=== PATIENT | female | born 1990 | race Caucasian/White ===

== ENCOUNTER → 2017-02-02 | Outpatient (CLI) | payer BC ==
[~2017-02-02] MED LIST: BIRTH CONTROL PO; DOCU-143 PO; HYDR-3812 PO; NAPR-243 PO; TRAM50TA2 PO
--- NOTE | 2017-02-02 16:19 | Diagnostic Imaging Report ---
EXAMINATION: OB ultrasound. INDICATION: survey. FINDINGS: There is a single intrauterine . heart rate is 149 beats per minute. The placenta is posterior. There is no placenta previa. survey demonstrates no ventriculomegaly and unremarkable appearance of the posterior fossa. The stomach appears unremarkable. The four-chamber view, the kidneys, cord insertion, three-vessel cord, urinary bladder, and the upper to mid spine appear unremarkable. The lower spine is not well demonstrated. This is due to position. The cervix is 4 cm in length and is closed. This is evaluated with dedicated transvaginal view. The growth parameters are: Biparietal diameter: 20 weeks 4 days Head circumference: 20 weeks 0 day Abdominal circumference: 20 weeks 1 day Femur length: 20 weeks 4 days These average at: 20 weeks 3 days. This is normal for gestational age of 20 weeks and 1 day based on LOWELL of 06/21/[address] Che. IMPRESSION: Short-term followup to reevaluate the lower spine and attempt to better visualize the four-chamber view of the heart is recommended. Dictated by: Dictated on workstation # [id number]
== END ==
LOC: RAD 12:50
PROVIDERS: ATTEND Obstetrics & Gynecology
DX: Z36 Encounter for antenatal screening of mother (principal); Z3A.20 20 weeks gestation of pregnancy
CPT/HCPCS: 76805; 76817

== ENCOUNTER → 2017-02-11 | Outpatient (CLI) | payer BC ==
--- NOTE | 2017-02-15 07:55 | ECHOCARDIOGRAPHY REPORT ---
DATE OF SERVICE: 02/11/2017 ECHOCARDIOGRAM ORDERING PHYSICIAN: BOBO GRAY MD, ARIADNE, CHER, FACC PRIMARY PHYSICIAN: TERENCE FOSTER MD INDICATION: Palpitations. MEASUREMENTS: LV diameter, diastolic 5.3 IVS thickness, diastolic 0.9 LVPW thickness, diastolic 0.7 Aortic root 3.3 Left atrium 3.4 DESCRIPTION: Two-dimensional echocardiography shows normal global left ventricular systolic function with normal regional wall motion. Left ventricular ejection fraction is 60% to 65%. No distinct regional wall motion abnormalities are seen. Aortic, mitral and tricuspid valve leaflets show good leaflet excursion. The aortic valve is trileaflet. No significant pericardial effusion is seen. Doppler imaging shows trivial mitral and tricuspid regurgitation. There is no Doppler evidence of any significant valvular stenosis. Pulmonary artery systolic pressure is estimated at approximately 25 to 30 mmHg. CONCLUSIONS: 1. Normal global left ventricular systolic function with normal regional wall motion and left ventricular ejection fraction of approximately 60% to 65%. 2. Trivial mitral and tricuspid regurgitation. 3. No evidence of any significant valvular stenosis. 4. Pulmonary artery systolic pressure is estimated to be 25 to 30 mmHg. Job ID: [id number] DocumentID: [id number] Dictated Date: 02/14/2017 17:38:27 Library Information Technician Date: 02/14/2017 21:20:16 Dictated By: BOBO GRAY MD, ARIADNE, FACP, FACC,
== END ==
LOC: CARD 08:06
PROVIDERS: ATTEND Internal Medicine Cardiovascular Disease
DX: R00.2 Palpitations (principal)
CPT/HCPCS: 93225; 93226; 93306

== ENCOUNTER → 2017-03-07 | Outpatient (CLI) | payer BC | LOC: LAB 08:43 | PROVIDERS: ATTEND Obstetrics & Gynecology | DX: O99.810 Abnormal glucose complicating pregnancy (principal) | CPT/HCPCS: 36415; 82951; 82952; 82962 ==

== ENCOUNTER → 2017-03-28 | Outpatient (CLI) | payer BC ==
--- NOTE | 2017-03-28 16:35 | Diagnostic Imaging Report ---
INDICATION: Follow-up spine and heart not well seen on 02/02/2017. TECHNIQUE: Multiple real-time grayscale images were obtained over the gravid uterus. COMPARISON: 02/02/2017. FINDINGS: heart rate is 143 beats per minute. The placenta is fundal and to the right. No placenta previa. Amniotic fluid appears normal. The spine and four-chamber view appear unremarkable. IMPRESSION: Completed survey. Dictated by: Dictated on workstation # [id number]
== END ==
LOC: RAD 11:56
PROVIDERS: ATTEND Obstetrics & Gynecology
DX: Z36 Encounter for antenatal screening of mother (principal); Z3A.00 Weeks of gestation of pregnancy not specified
CPT/HCPCS: 76816

== ENCOUNTER → 2017-04-11 | Outpatient (CLI) | payer BC | LOC: LAB 16:06 | PROVIDERS: ATTEND Nurse Practitioner Family | DX: E83.42 Hypomagnesemia (principal) | CPT/HCPCS: 36415; 83735 ==

== ENCOUNTER → 2017-04-20 | Outpatient (CLI) | payer BC | LOC: LAB 17:17 | PROVIDERS: ATTEND Nurse Practitioner Family | DX: E83.42 Hypomagnesemia (principal); R00.2 Palpitations | CPT/HCPCS: 36415; 83735 ==

== ENCOUNTER 2017-05-19 16:34 | Outpatient (CLI) | payer BC ==
[~2017-05-19] VITALS: Ht 177.8 cm; Wt 95.3 kg
[2017-05-19] VITALS (9 sets, daily range): BP systolic 129–152; BP diastolic 78–93
[2017-05-19 18:03] LABS: BASOPHILS % (AUTO) 0 % (0-10); EOSINOPHILS # (AUTO) 0.1 10^3/uL (0.0-0.3); EOSINOPHILS % (AUTO) 1 % (0-10); LYMPHOCYTES # (AUTO) 2.8 X 10^3 (1.0-4.0); LYMPHOCYTES % (AUTO) 24 % (12-44); MEAN CORPUSCULAR HEMOGLOBIN 29 PG (25-34); MEAN CORPUSCULAR HGB CONC 32 G/DL (32-36); MEAN CORPUSCULAR VOLUME 90 FL (80-99); MEAN PLATELET VOLUME 11.1 FL (7.4-10.4); MONOCYTES # (AUTO) 0.9 X 10^3 (0.0-1.0); MONOCYTES % (AUTO) 8 % (0-12); NEUTROPHILS # (AUTO) 7.8 X 10^3 (1.8-7.8); NEUTROPHILS % (AUTO) 67 % (42-75); PLATELET COUNT 227 10^3/uL (130-400); RED BLOOD COUNT 3.75 10^6/uL (4.35-5.85); RED CELL DISTRIBUTION WIDTH 13.4 % (10.0-14.5); WHITE BLOOD COUNT 11.6 10^3/uL (4.3-11.0)
[2017-05-19 18:20] LABS: ALANINE AMINOTRANSFERASE 13 U/L (0-55); ANION GAP 8 MMOL/L (5-14); ASPARTATE AMINO TRANSFERASE 13 U/L (5-34); BILIRUBIN,TOTAL 0.2 MG/DL (0.1-1.0); BLOOD UREA NITROGEN 11 MG/DL (7-18); BUN/CREATININE RATIO 17; CALCIUM 9.4 MG/DL (8.5-10.1); CARBON DIOXIDE 21 MMOL/L (21-32); CHLORIDE 109 MMOL/L (98-107); CREATININE SERUM 0.64 MG/DL (0.60-1.30); GFR ESTIMATED > 60; GLUCOSE 73 MG/DL (70-105); SODIUM 138 MMOL/L (135-145); TOTAL PROTEIN 6.1 GM/DL (6.4-8.2); URIC ACID 4.4 MG/DL (2.6-7.2)
[2017-05-19 18:51] LABS: PROTEIN/CREATININE RATIO 0.1
--- NOTE | 2017-05-20 13:45 | Physician Query-Final Dx ---
[facility] 05/20/17 1345: Clinic Account Progress/Dx Physician Query: Please give diagnosis Date of Service May 19, 2017 at 16:34 NEVAEH PORTER DO 05/20/17 1431: Clinic Account Progress/Dx DIAGNOSIS: Diagnosis 27 yo @ 35 weeks Vaginal discharge [facility] May 20, 2017 13:45 NEVAEH PORTER DO May 20, 2017 14:31
== END 2017-05-19 19:25 | disposition home or self-care (01) ==
LOC: WSo 16:34 → LDRP 16:35 → WSo 19:25
PROVIDERS: ATTEND Obstetrics & Gynecology
DX: O13.3 Gestational [pregnancy-induced] hypertension without significant proteinuria, third trimester (principal); O26.893 Other specified pregnancy related conditions, third trimester; N89.8 Other specified noninflammatory disorders of vagina; Z3A.35 35 weeks gestation of pregnancy
CPT/HCPCS: 36415; 80053; 82570; 84156; 84550; 85025; 99214

== ENCOUNTER 2017-06-20 19:00 | Inpatient (IN) | payer BC ==
[~2017-06-20] VITALS: Ht 177.8 cm; Wt 142.0 kg
[2017-06-20 19:30] VITALS: BP 137/71
[2017-06-20] MEDS ORDERED: D5 LR IV SOLUTION 1,000 ML IV ONE (19:34)
[2017-06-20] MEDS ORDERED: LACTATED RINGERS 1,000 ML IV NR (19:45)
[2017-06-20] MEDS ORDERED: MINERAL OIL CONCENTRATE 99.9% 15 ML UDC TOP PRN (19:45)
[2017-06-20] MEDS ORDERED: MISOPROSTOL 100 MCG (CYTOTEC) TAB PO NR (19:45)
[2017-06-20 20:14] LABS: BASOPHILS % (AUTO) 0 % (0-10); BILIRUBIN,URINE NEGATIVE (NEGATIVE); EOSINOPHILS # (AUTO) 0.1 10^3/uL (0.0-0.3); EOSINOPHILS % (AUTO) 1 % (0-10); KETONES,URINE NEGATIVE (NEGATIVE); LEUKOCYTE ESTERASE ,URINE NEGATIVE (NEGATIVE); LYMPHOCYTES # (AUTO) 2.8 X 10^3 (1.0-4.0); LYMPHOCYTES % (AUTO) 25 % (12-44); MEAN CORPUSCULAR HEMOGLOBIN 29 PG (25-34); MEAN CORPUSCULAR HGB CONC 32 G/DL (32-36); MEAN CORPUSCULAR VOLUME 89 FL (80-99); MEAN PLATELET VOLUME 11.7 FL (7.4-10.4); MONOCYTES # (AUTO) 0.7 X 10^3 (0.0-1.0); MONOCYTES % (AUTO) 7 % (0-12); NEUTROPHILS # (AUTO) 7.7 X 10^3 (1.8-7.8); NEUTROPHILS % (AUTO) 68 % (42-75); NITRITE,URINE NEGATIVE (NEGATIVE); PH,URINE 7 (5-9); PLATELET COUNT 202 10^3/uL (130-400); PROTEIN,URINE 1+ (NEGATIVE); UROBILINOGEN,URINE NORMAL (NORMAL); WHITE BLOOD COUNT 11.3 10^3/uL (4.3-11.0)
[2017-06-20] MEDS: D5 LR IV SOLUTION 1,000 ML IV SCH (20:14)
[2017-06-20] MEDS ORDERED: HYDROmorphone (DILAUDID) 2 MG/ML VIAL IVP ONE (20:15)
[2017-06-20 20:22] LABS: SQUAMOUS EPITHELIAL CELL,UR 0-2 /HPF
[2017-06-20 22:00] VITALS: BP 149/95
[2017-06-20] MEDS ORDERED: MAGN250T35 PO (22:01)
[2017-06-20] MEDS ORDERED: DOXY25TA46 PO (22:01)
[2017-06-20] MEDS ORDERED: RANI25VI2 IJ (22:01)
[2017-06-20] MEDS ORDERED: PREN-142 PO (22:01)
[2017-06-20] MEDS: CATHETER FLUSH 10 ML SYR IV SCH (22:16)
[2017-06-20] MEDS ORDERED: MAGN400T6 PO (23:01)
[2017-06-21] VITALS (70 sets, daily range): BP systolic 102–184; BP diastolic 53–121
[2017-06-21] MEDS: MISOPROSTOL 100 MCG (CYTOTEC) TAB PO SCH ×2 (00:35→04:43)
[2017-06-21] MEDS: D5 LR IV SOLUTION 1,000 ML IV SCH ×3 (03:20→22:47)
[2017-06-21] MEDS ORDERED: HYDROmorphone (DILAUDID) 2 MG/ML VIAL ONE ×2 (05:53→17:23)
[2017-06-21] MEDS: CATHETER FLUSH 10 ML SYR IV SCH (06:07)
[2017-06-21] MEDS ORDERED: OXYTOCIN/NORMAL SALINE 500 ML IV SCH ×2 (08:35→17:52)
--- NOTE | 2017-06-21 08:45 | History & Physical-OB ---
OB - Chief Complaint & HPI Date/Time Date of Admission: Date of Admission: Jun 20, 2017 at 7:00 pm Time Seen by Provider: 08:10 Chief Complaint/History OB-Reason for Admission/Chief: Induction of Labor Hx : 1 Hx Para: 0 Expected Date of Delivery: Jun 21, 2017 Gestational Age in Weeks: 40 Indication for induction: maternal discomfort Admission Nurse Assessment Rev: Yes History of Labs A pos Antibody neg RI RPR NR HBsAg NR HIV NR GC neg GBS neg Allergies and Home Medications Allergies Coded Allergies: No Known Drug Allergies (Unverified , 12/13/10) Home Medications Doxylamine Succinate 25 Mg Tablet, 25 MG PO, (Reported) Magnesium Oxide 400 Mg Tablet, 400 MG PO, (Reported) Vit No.124/Iron/FA 1 Each Tablet, 1 EACH PO, (Reported) Ranitidine HCl 25 Mg/1 Ml Vial, 25 MG IJ, (Reported) OB - History Hx of Present Care: Yes Ultrasounds: Normal mid trimester US Obstetrical Complications: None Medical Complications: None (excessive weight gain in ) Delivery History Hx Blood Disorders: No Adverse Rxn to Tranfusion: No Patient Past Medical History BMI > 35 Social History/Family History HIV/AIDS: No Recent Infectious Disease Expo: No Sexually Transmitted Disease: No Alcohol Use: Denies Use Recreational Drug Use: No OB - Admission Exam Physical Exam Date Seen by Provider: Jun 21, 2017 Time Seen by Provider: 08:10 Vitals: Vital Signs 06/21/17 06/21/17 04:40 07:00 Temp 97.8 Pulse 78 Resp 18 B/P (MAP) 152/80 HEENT: NCAT Heart: Rhythm Normal Lungs: Clear Abdomen: Gravid Extremities: Normal Reflexes: Normal Cervical Dilatation: 1cm Effacement: 75% Station: -1 Membranes: Intact Heart Rate: 150's Accelerations: Accelerations Present Decelerations: No Decelerations Short Term Variability: Present [facility]it[facility] Variability: Average (6-25) Contractions on Admission: 6-10 Minutes Apart Intensity: Mild Castro Scoring Tool (Modified) Dilation (cm): 1-2cm (1) Effacement (%): 51-79% (2) Descent/Station: -1,0 (2) Cervix Consistency: Soft (2) Cervix Position: Anterior (2) Castro Score: 8 Labs Laboratory Tests Test 06/20/17 19:30 Range/Units White Blood Count 11.3 H 4.3-11.0 10^3/uL Red Blood Count 3.70 L 4.35-5.85 10^6/uL Hemoglobin 10.7 L 11.5-16.0 G/DL Hematocrit 33 L 35-52 % Mean Corpuscular Volume 89 80-99 FL Mean Corpuscular Hemoglobin 29 25-34 PG Mean Corpuscular Hemoglobin Concent 32 32-36 G/DL Red Cell Distribution Width 14.0 10.0-14.5 % Platelet Count 202 130-400 10^3/uL Mean Platelet Volume 11.7 H 7.4-10.4 FL Neutrophils (%) (Auto) 68 42-75 % Lymphocytes (%) (Auto) 25 12-44 % Monocytes (%) (Auto) 7 0-12 % Eosinophils (%) (Auto) 1 0-10 % Basophils (%) (Auto) 0 0-10 % Neutrophils # (Auto) 7.7 1.8-7.8 X 10^3 Lymphocytes # (Auto) 2.8 1.0-4.0 X 10^3 Monocytes # (Auto) 0.7 0.0-1.0 X 10^3 Eosinophils # (Auto) 0.1 0.0-0.3 10^3/uL Basophils # (Auto) 0.0 0.0-0.1 10^3/uL Urine Color YELLOW Urine Clarity CLEAR Urine pH 7 5-9 Urine Specific [place] 1.015 L 1.016-1.022 Urine Protein 1+ H NEGATIVE Urine Glucose (UA) NEGATIVE NEGATIVE Urine Ketones NEGATIVE NEGATIVE Urine Nitrite NEGATIVE NEGATIVE Urine Bilirubin NEGATIVE NEGATIVE Urine Urobilinogen NORMAL NORMAL MG/DL Urine Leukocyte Esterase NEGATIVE NEGATIVE Urine RBC (Auto) NEGATIVE NEGATIVE Urine RBC NONE /HPF Urine WBC NONE /HPF Urine Squamous Epithelial Cells 0-2 /HPF Urine Crystals PRESENT H /LPF Urine Amorphous Sediment FEW REYMUNDO URATES H /LPF Urine Bacteria NONE /HPF Urine Casts NONE /LPF Urine Mucus NONE /LPF Urine Culture Indicated NO OB - Assessment/Plan/Diagnosis Assessment Assessment: induction of labor Plan Plan: Induction Induction Method: per Misoprostol Protocol Other Plan Cytotec overnight PO, followed by AROM and Pitocin in the AM. Discharge Diagnosis Diagnosis: 27 yo @ 40.0 BMI > 35 GBS neg NEVAEH PORTER DO Jun 21, 2017 8:45 am
[2017-06-21] MEDS ORDERED: SUFENTA 0.6MCG/ML BUPIVA 0.125 100 ML ONE (09:47)
[2017-06-21] MEDS ORDERED: ONDANSETRON 4 MG/2 ML (SDV) Z0FRAN ONE ×2 (11:05→17:46)
[2017-06-21] MEDS ORDERED: fentaNYL INJECTION 100 MCG/2 ML AMP ONE ×2 (11:40→17:46)
[2017-06-21] MEDS ORDERED: morphine INJ 10 MG/ML 1ML (SYR OR VIAL) IJ ONE (13:15)
[2017-06-21] MEDS ORDERED: morphine INJ 10 MG/ML 1ML (SYR OR VIAL) IVP ONE (13:15)
[2017-06-21] MEDS ORDERED: LIDOCAINE PF 2% 5 ML (XYLOCAINE) VIAL ONE (13:17)
[2017-06-21] MEDS ORDERED: BUPIVACAINE 0.25% 30 ML (SENSORCAINE) VIAL ONE (15:02)
[2017-06-21] MEDS ORDERED: morphine INJ 10 MG/ML 1ML (SYR OR VIAL) ONE (15:47)
[2017-06-21] MEDS ORDERED: LACTATED RINGERS 1,000 ML IV ONE ×2 (16:39→17:46)
[2017-06-21] MEDS ORDERED: EPIDURAL (SUFENTA 0.6MCG/ML BUPIVA 0.125%) 100 ML BAG EPI SCH (16:45)
[2017-06-21] MEDS ORDERED: NALOXONE 0.4 MG/ML 1 ML (NARCAN) VIAL IV PRN ×3 (16:45→19:30)
[2017-06-21] MEDS ORDERED: TERBUTALINE INJ 1 MG/ML (BRETHINE) AMP ONE (17:26)
[2017-06-21] MEDS ORDERED: FAMOTIDINE 20MG/2ML IV (PEPCID) ONE (17:40)
[2017-06-21] MEDS ORDERED: METOCLOPRAMIDE INJ 10 MG/2 ML (REGLAN) ONE (17:40)
[2017-06-21] MEDS ORDERED: CITRIC ACID/SOB CIT (BICITRA) 30 ML UDC ONE (17:40)
[2017-06-21] MEDS ORDERED: ceFAZolin 2 GM/50 ML NS 50 ML ONE (17:41)
[2017-06-21] MEDS ORDERED: OXYTOCIN/NORMAL SALINE 1,000 ML IV ONE (17:46)
[2017-06-21] MEDS ORDERED: KETAMINE HCL 100 MG/ML 5 ML VIAL ONE (17:50)
--- NOTE | 2017-06-21 17:52 | Progress Note-Standard ---
Standard Progress Note Progress Notes/Assess & Plan Date Seen by Provider: Jun 21, 2017 Time Seen by Provider: 17:35 Progress/Assessment & Plan this 27-year-old was admitted last evening for induction of labor at 40 weeks' gestation. The patient was given Cytotec overnight, followed by artificial rupture membranes and Pitocin augmentation this morning at 815 a.m. Throughout the day contraction pattern did become regular, she obtained an epidural at approximately 1030 this morning, however there was limited relief. An offer was made to replace epidural this afternoon as the patient became much more uncomfortable however she did not want to proceed with a repeat epidural placement. She was given IV 5 mg of morphine and IM 10 mg of morphine which did give her some significant rest for approximately 1-1/2 hours, however, this medication didn't wear off and the patient became acutely much more comfortable. Prior to the morphine dosing the patient's cervix was evaluated and found to be 5-6 cm, 70 percent effaced, -1 station. With an adequate contraction pattern of every 2 minutes, the patient made no progression in cervical dilation. Her blood pressures have become to increase the latest was 170s over 90s to 100 cyst may be secondary to discomfort, however, at this point I discussed the patient my concern of the elevation of her blood pressure. A dose of terbutaline was given as well as 1 mg of Dilaudid due to patient's limited pain control and becoming hysterical during exam due to the pain. I discussed the patient proceeding with , at this point she is very agreeable. Anesthesia was notified and or crew was contacted and we will proceed as soon as consent is obtained, risk reviewed. NEVAEH PORTER DO Jun 21, 2017 5:52 pm
[2017-06-21] MEDS ORDERED: ONDANSETRON 4 MG/2 ML (SDV) Z0FRAN IVP PRN ×2 (18:00→19:30)
[2017-06-21] MEDS ORDERED: KETOROLAC 30 MG/ML VIAL IVP SCH (18:00)
[2017-06-21] MEDS ORDERED: TETANUS,DIPTH,PERTUSS P/F (BOOSTRIX) 0.5 ML VIAL IM SCH (18:00)
[2017-06-21] MEDS ORDERED: MEASLES,MUMPS,RUBELLA 1 EA INJ SC SCH (18:00)
[2017-06-21] MEDS ORDERED: HYDROmorphone (DILAUDID) 2 MG/ML VIAL IVP PRN (18:00)
[2017-06-21] MEDS ORDERED: DOCU100C37 PO (18:06)
[2017-06-21] MEDS ORDERED: HYDR-3812 PO (18:06)
[2017-06-21] MEDS ORDERED: IBUP-1773 PO (18:06)
--- NOTE | 2017-06-21 18:07 | Discharge Inst-Women's Service ---
Discharge Inst-Women's Serv Depart Medication/Instructions New, Converted or Re-Newed RX: RX on Chart Consults/Follow Up Additional Follow Up: Yes Orders/Referrals Dr. Roberson in 7-10 days and in 6 weeks Activity Activity: Activity as Tolerated Driving Instructions: No Driving for 1 Week NO SMOKING: NO SMOKING Nothing Inside Vagina: No Douching, No [place], No Tampons Diet Discharge Diet: No Restrictions Symptoms to Report to : Bleeding Excessive, Pain Increased, Fever Over 101 Degrees F, Vaginal Bleeding Increase, Questions/Concerns For Any Problems or Questions: Contact Your Physician Skin/Wound Care Infection Signs and Symptoms: Increased Redness, Foul Odor of Wound, Increased Drainage, Skin Itchy or Has a Rash, Increased Swelling, Temperature Above 101 F Operative Area Clean and Dry: Keep Incision Clean/Dry Stitches/Kim/Dermabond: Dermabond, Care of Stitches Bathing Instructions: NEVAEH Grimes DO Jun 21, 2017 6:07 pm
[2017-06-21] MEDS ORDERED: FERR-74 PO (18:12)
[2017-06-21] MEDS ORDERED: MIDAZOLAM 2 MG/2 ML (VERSED) VIAL ONE (18:30)
[2017-06-21] MEDS ORDERED: diphenhydrAMINE 50 MG/ML INJ (BENADRYL) IV PRN (19:30)
[2017-06-21] MEDS ORDERED: PROMETHAZINE INJ 25 MG/ML (PHENERGAN) AMP IVP PRN (19:30)
[2017-06-21] MEDS ORDERED: ONDANSETRON 4 MG/2 ML (SDV) Z0FRAN IV PRN (19:30)
[2017-06-21] MEDS ORDERED: METOCLOPRAMIDE INJ 10 MG/2 ML (REGLAN) IV PRN (19:30)
[2017-06-21] MEDS ORDERED: morphine INJ 10 MG/ML 1ML (SYR OR VIAL) IVP PRN (19:30)
[2017-06-21] MEDS ORDERED: CATHETER FLUSH 10 ML SYR IV SCH (22:00)
[2017-06-21] MEDS: HYDROcodone/APAP 5 MG/325 MG (LORTAB) TAB PO PRN (22:04)
[2017-06-21] MEDS: DOCUSATE SODIUM 100 MG (COLACE) CAP PO SCH (22:05)
[2017-06-22 01:55] VITALS: BP 136/85
--- NOTE | 2017-06-22 05:18 | OPERATIVE REPORT ---
DATE OF SERVICE: PREOPERATIVE DIAGNOSES: 1. A 27-year-old G1, P0, at 40 weeks' gestation. 2. Failure to progress. 3. Elevation of maternal temp. 4. Meconium-stained fluid. POSTOPERATIVE DIAGNOSES: 1. A 27-year-old G1, P0, 40 weeks' gestation. 2. Failure to progress. 3. Elevation of maternal temp. 4. Meconium-stained fluid. 5. Nuchal cord x1. PROCEDURE: Primary low transverse section. SURGEON: Dr. Jaswinder Roberson. PERINATAL BREASTFEEDING ASSISTANT: Jodee Oneill MS3 ANESTHESIA: Spinal. ESTIMATED BLOOD LOSS: 400 mL. FLUIDS: 1,300 mL for lactated Ringer solution. URINE OUTPUT: 50 mL, clear at the end of the procedure. FINDINGS: A live male infant, weighing 7 pounds, 13 ounces, Apgars of 7 and 9. Grossly normal-appearing uterus, bilateral fallopian tubes and ovaries. SPECIMEN SENT: Placenta. INDICATIONS FOR PROCEDURE: Please see preoperative progress note for complete details pertaining to the patient's operative course as well as risks reviewed and consent obtained. OP REPORT IN DETAIL: Once in the operating room, spinal anesthesia was found to be adequate. She was placed in the supine position with a leftward tilt, prepped and draped in normal sterile fashion. A timeout is performed and anesthesia is tested. I then proceed with making a Pfannenstiel skin incision with a knife and carried down to the underlying fascia using Bovie cautery. The fascial incision is extended laterally using Bovie cautery. The superior aspect of the fascial incision was then grasped with Vladimir clamps, tented upward and dissected off the underlying rectus muscles. The inferior aspect of the fascial incision was then grasped with Vladimir clamps, tented upward and dissected off the underlying rectus muscles. The rectus muscles were then dissected down the midline using Espinoza scissors, which exposed the peritoneum, which were entered bluntly. I extended the peritoneal incisions superiorly and inferiorly using Metzenbaum scissors with good visualization of underlying bowel and bladder. I then placed the Jorge ring retractor in the peritoneal incision and it offers excellent lateral sidewall retraction. I then identified the lower uterine segment which was found to be thinned out. I made an incision with the knife into the vesicouterine peritoneum and bluntly dissect this off the lower uterine segment creating a bladder flap. I then proceeded with my myotomy until membranes are visualized. At which point, I extended the uterine incision laterally and superiorly using bandage scissors. Rupture of membranes is performed in the process of doing this and meconium-stained fluid is noted at that time. The was found in vertex presentation, I placed my hand beneath the 's head and elevated up to the incision. With gentle fundal pressure, the 's head is delivered through the incision where the nose and the oropharynx is bulb suctioned and nuchal cord is reduced x1. Anterior and posterior shoulders are delivered. The is then brought on to the operative field where the cord was doubly clamped and cut. was handed off to the awaiting nurses in attendance. Cord blood was collected and 3-vessel cord with intact placenta was delivered spontaneously thereafter. IV Pitocin is initiated to facilitate uterine contraction. Uterine fundus became firmer with bimanual massage. The uterus was then exteriorized and cleared of all endometrial clots and debris. I then closed the uterine incision using 0 Vicryl suture in running locking fashion. A second layer of imbricating 0 Monocryl was placed. An excellent hemostasis was noted after doing so. I then placed the uterus back within the pelvis and copiously irrigated the pelvis using normal saline. There was no active bleeding noted from any of my dissection planes. I then placed Interceed antiadhesive over my lower transverse incision and proceeded with closing the peritoneum after removing the Jorge ring retractor. The peritoneum was then closed using 2-0 Vicryl suture in a running fashion. The rectus muscle was reapproximated using 3-0 Vicryl sutures in interrupted fashion. The fascia was reapproximated using 0 Vicryl suture in a running fashion. The subcutaneous tissues reapproximated using 3-0 plain in an interrupted subcutaneous stitch and the skin was reapproximated using 4-0 Monocryl in a running subcuticular. Dermabond was applied to the incision. A sterile dressing was adhesed with white tape. The patient tolerated the procedure well and was sent to the recovery area in stable condition. Lap and sponge counts correct at the end of the procedure. Instrument counts were correct as well. Two grams of Ancef was given preoperatively for infection prophylaxis. Job ID: [id number] DocumentID: [id number] Dictated Date: 06/21/2017 19:09:50 Incident Response Coordinator Date: 06/21/2017 23:38:47 Dictated By: DO JIM CORDERO
[2017-06-22] MEDS: HYDROcodone/APAP 5 MG/325 MG (LORTAB) TAB PO PRN (06:17)
[2017-06-22 06:40] LABS: BASOPHILS % (AUTO) 0 % (0-10); EOSINOPHILS % (AUTO) 0 % (0-10); LYMPHOCYTES # (AUTO) 2.7 X 10^3 (1.0-4.0); LYMPHOCYTES % (AUTO) 18 % (12-44); MEAN CORPUSCULAR HEMOGLOBIN 28 PG (25-34); MEAN CORPUSCULAR HGB CONC 31 G/DL (32-36); MEAN CORPUSCULAR VOLUME 91 FL (80-99); MEAN PLATELET VOLUME 12.4 FL (7.4-10.4); MONOCYTES # (AUTO) 0.8 X 10^3 (0.0-1.0); MONOCYTES % (AUTO) 6 % (0-12); NEUTROPHILS # (AUTO) 11.6 X 10^3 (1.8-7.8); NEUTROPHILS % (AUTO) 77 % (42-75); PLATELET COUNT 168 10^3/uL (130-400); RED BLOOD COUNT 3.27 10^6/uL (4.35-5.85); RED CELL DISTRIBUTION WIDTH 14.3 % (10.0-14.5); WHITE BLOOD COUNT 15.1 10^3/uL (4.3-11.0)
[2017-06-22 08:40] VITALS: BP 141/88
[2017-06-22] MEDS ORDERED: IBUPROFEN 600 MG (MOTRIN) TAB PO ONE (08:43)
[2017-06-22] MEDS: FERROUS SULF 325 MG (IRON) TAB PO SCH ×2 (08:53→15:12)
[2017-06-22] MEDS: DOCUSATE SODIUM 100 MG (COLACE) CAP PO SCH (08:54)
[2017-06-22 11:00] VITALS: BP 132/87
--- NOTE | 2017-06-22 11:45 | Anesthesia-Regional Post-Op ---
Regional Patient Condition Mental Status: Alert, Oriented x3 Circulation: Same as Pre-Op Headache: Absent Sensation: Full Recovery Motor Block: Absent Post Op Complications Complications None Follow Up Care/Instructions Patient Instructions None needed. Anesthesia/Patient Condition Patient is doing well, no complaints, stable vital signs, no apparent adverse anesthesia problems. No complications reported per nursing. DOROTA FLORES CRNA Jun 22, 2017 11:45
[2017-06-22] MEDS: IBUPROFEN 600 MG (MOTRIN) TAB PO SCH ×2 (15:14→20:58)
[2017-06-22 15:17] VITALS: BP_SYST 113; BP_SYST 150; BP_DIAS 75; BP_DIAS 87
--- NOTE | 2017-06-22 18:04 | Progress Note-Standard ---
Standard Progress Note Progress Notes/Assess & Plan Date Seen by Provider: Jun 22, 2017 Time Seen by Provider: 08:00 Progress/Assessment & Plan Patient doing well POD 1 PLTCS. Reports good pain control. AMbulating and voiding freely. Tolerating regular diet. Lochia light Vital Sign - Last 24 Hours 06/21/17 06/21/17 06/22/17 06/22/17 18:05 21:30 01:55 08:40 Temp 98.2 98.2 97.8 Pulse 129 98 97 110 Resp 18 18 18 18 B/P (MAP) 145/83 139/85 136/85 141/88 Pulse Ox 98 99 100 O2 Delivery Room Air Room Air Room Air Room Air 06/22/17 06/22/17 11:00 15:17 Temp 98.2 97.9 Pulse 95 107 Resp 18 18 B/P (MAP) 132/87 150/87 Pulse Ox 97 98 O2 Delivery Room Air Room Air Incision: c/d/i Laboratory Tests Test 06/22/17 05:40 Range/Units White Blood Count 15.1 H 4.3-11.0 10^3/uL Red Blood Count 3.27 L 4.35-5.85 10^6/uL Hemoglobin 9.3 L 11.5-16.0 G/DL Hematocrit 30 L 35-52 % Mean Corpuscular Volume 91 80-99 FL Mean Corpuscular Hemoglobin 28 25-34 PG Mean Corpuscular Hemoglobin Concent 31 L 32-36 G/DL Red Cell Distribution Width 14.3 10.0-14.5 % Platelet Count 168 130-400 10^3/uL Mean Platelet Volume 12.4 H 7.4-10.4 FL Neutrophils (%) (Auto) 77 H 42-75 % Lymphocytes (%) (Auto) 18 12-44 % Monocytes (%) (Auto) 6 0-12 % Eosinophils (%) (Auto) 0 0-10 % Basophils (%) (Auto) 0 0-10 % Neutrophils # (Auto) 11.6 H 1.8-7.8 X 10^3 Lymphocytes # (Auto) 2.7 1.0-4.0 X 10^3 Monocytes # (Auto) 0.8 0.0-1.0 X 10^3 Eosinophils # (Auto) 0.0 0.0-0.3 10^3/uL Basophils # (Auto) 0.0 0.0-0.1 10^3/uL Diagnosis: POD 1 PLTCS Acute blood loss anemia BMI >40 P: Replace iron Continue routine PO care Plan for dc home tomorrow. NEVAEH PORTER DO Jun 22, 2017 6:04 pm
[2017-06-22 21:00] VITALS: BP 145/86
[2017-06-23] MEDS: IBUPROFEN 600 MG (MOTRIN) TAB PO SCH ×2 (03:14→09:10)
[2017-06-23 03:15] VITALS: BP 147/91
--- NOTE | 2017-06-23 08:10 | Progress Note-Standard ---
Standard Progress Note Progress Notes/Assess & Plan Date Seen by Provider: Jun 23, 2017 Time Seen by Provider: 08:00 Progress/Assessment & Plan Patient doing well POD 2 PLTCS. Reports good pain control. AMbulating and voiding freely. Tolerating regular diet. Lochia light Vital Sign - Last 24 Hours 06/22/17 06/22/17 06/22/17 06/22/17 08:40 11:00 15:17 21:00 Temp 97.8 98.2 97.9 98.4 Pulse 110 95 107 102 Resp 18 18 18 18 B/P (MAP) 141/88 132/87 150/87 145/86 Pulse Ox 100 97 98 97 O2 Delivery Room Air Room Air Room Air Room Air 06/23/17 03:15 Temp 98.7 Pulse 125 Resp 18 B/P (MAP) 147/91 Pulse Ox 100 O2 Delivery Room Air Incision: c/d/i Diagnosis: POD 2 PLTCS Acute blood loss anemia BMI >40 P: Replace iron Continue routine PO care Plan for dc home tomorrow. NEVAEH PORTER DO Jun 23, 2017 8:10 am
[2017-06-23 08:54] VITALS: BP 145/93
[2017-06-23] MEDS ORDERED: FUROSEMIDE 20 MG (LASIX) TAB ONE (09:00)
[2017-06-23] MEDS: DOCUSATE SODIUM 100 MG (COLACE) CAP PO SCH (09:09)
[2017-06-23] MEDS: FERROUS SULF 325 MG (IRON) TAB PO SCH (09:09)
[2017-06-23 11:51] VITALS: BP 140/88
[2017-06-23 16:00] VITALS: BP 143/90
[2017-06-23 17:00] VITALS: BP 133/74
[2017-06-23] MEDS ORDERED: FUROSEMIDE 20 MG (LASIX) TAB PO SCH (17:00)
[2017-06-23] MEDS ORDERED: LABE200T3 PO (17:25)
[2017-06-23] MEDS ORDERED: LABETALOL 200 MG (NORMODYNE) TAB PO NR (17:30)
== END 2017-06-23 18:50 | disposition home or self-care (01) | DRG 765 ==
LOC: LDRP 19:00
PROVIDERS: ADMIT Obstetrics & Gynecology; ATTEND Obstetrics & Gynecology
PROC: 3E0P05Z Introduction of Adhesion Barrier into Female Reproductive, Open Approach (ICD-10-PCS; 2017-06-21)
PROC: 10D00Z1 Extraction of Products of Conception, Low, Open Approach (ICD-10-PCS; principal; 2017-06-21 18:10)
DX: O26.03 Excessive weight gain in pregnancy, third trimester (principal); Z68.41 Body mass index [BMI] 40.0-44.9, adult; O75.2 Pyrexia during labor, not elsewhere classified; O66.40 Failed trial of labor, unspecified; O77.0 Labor and delivery complicated by meconium in amniotic fluid; O69.81X0 Labor and delivery complicated by cord around neck, without compression, not applicable or unspecified; O99.03 Anemia complicating the puerperium; D64.9 Anemia, unspecified; Z3A.40 40 weeks gestation of pregnancy; Z37.0 Single live birth
CPT/HCPCS: 36415; 81000; 85025; 86850; 86900; 86901

== ENCOUNTER → 2017-08-25 | Outpatient (CLI) | payer BC ==
[~2017-08-25] MED LIST changes: +DOCU100C37 PO; +DOXY25TA46 PO; +FERR-74 PO; +IBUP-1773 PO; +LABE200T3 PO; +MAGN250T35 PO; +MAGN400T6 PO; +PREN-142 PO; +RANI25VI2 IJ
== END ==
LOC: CARD 08:41
PROVIDERS: ATTEND Nurse Practitioner Family
DX: R00.2 Palpitations (principal); R06.02 Shortness of breath
CPT/HCPCS: 93306

== ENCOUNTER → 2018-03-14 | Outpatient (CLI) | payer BC ==
[~2018-03-14] MED LIST changes: +ACHD5005 PO; -DOXY25TA46 PO; -FERR-74 PO; +FERR325T18 PO; -HYDR-3812 PO; +UNISOM25 M1 PO
== END ==
LOC: CARD 09:40
PROVIDERS: ATTEND Internal Medicine Cardiovascular Disease
DX: R00.2 Palpitations (principal); R06.02 Shortness of breath; E66.8 Other obesity
CPT/HCPCS: 93351

== ENCOUNTER → 2020-07-01 | Outpatient (CLI) | payer BC ==
[~2020-07-01] MED LIST changes: -LABE200T3 PO; +LABE200T7 PO; -MAGN400T6 PO; +MAGN400T8 PO; -TRAM50TA2 PO; +TRM50T PO
== END ==
LOC: LABNPT 06:36
PROVIDERS: ATTEND Nurse Practitioner Family
DX: U07.1 COVID-19 (principal)
CPT/HCPCS: 87635